=== PATIENT | male | born 1975 | race Caucasian/White ===

== ENCOUNTER 2022-08-24 13:57 | Inpatient (IN) ==
[2022-08-24 15:20] LABS: BUN/Creatinine Ratio 15 (6-26); Blood Urea Nitrogen 13 mg/dL (6-20); Carbon Dioxide 25 mEq/L (23-29); Chloride 98 mEq/L (98-107); Potassium 3.6 mEq/L (3.5-5.1); Sodium 134 mEq/L (136-145)
[2022-08-24 15:21] LABS: Calcium 9.7 mg/dL (8.6-10.3); Glucose 359 mg/dL (70-105); Osmolality,Calculated 293 (280-300); Troponin I < 0.03 ng/mL (< 0.04)
[2022-08-24] MEDS ORDERED: Aspirin 81 MG TAB.CHEW PO ONE (15:24)
[2022-08-24] MEDS ORDERED: Nitroglycerin 0.4 MG TAB.SUBL SL PRN (15:24)
[2022-08-24 15:26] LABS: Basophils # 0.1 K/mcL (0.0-0.2); Basophils % 0.8 %; Eosinophils # 0.1 K/mcL (0.0-0.6); Eosinophils % 0.7 %; Hematocrit 43.8 % (37.5-50.1); Hemoglobin 14.6 g/dL (12.9-16.9); Immature Granulocytes % 0.4 % (0-4); Lymphocytes # 2.1 K/mcL (0.6-4.6); Lymphocytes % 21.1 %; Mean Corpuscular HGB Conc 33.3 g/dL (31.6-35.5); Mean Corpuscular Hemoglobin 29.6 pg (28.0-33.3); Mean Corpuscular Volume 88.8 fL (83.0-100.0); Mean Platelet Volume 10.4 fL (9.4-12.4); Monocytes # 0.8 K/mcL (0.0-1.3); Monocytes % 8.1 %; Neutrophils # 6.9 K/mcL (1.6-8.9); Platelet Count 209 K/mcL (140-400); Red Blood Count 4.93 M/mcL (4.19-5.50); Red Cell Distribution Width 12.4 % (11.5-14.5); Segmented Neutrophils % 68.9 %; White Blood Count 10.1 K/mcL (4.3-11.1)
[2022-08-24] MEDS ORDERED: 0.9 % Sodium Chloride 1,000 ML IV ONE (15:27)
[2022-08-24 18:07] LABS: Albumin 4.2 g/dL (3.5-5.7); Albumin/Globulin Ratio 1.4 (1.1-2.2); Bilirubin,Direct 0.1 mg/dL (0.0-0.2); Bilirubin,Indirect 0.3 mg/dL (0.0-1.0); Bilirubin,Total 0.4 mg/dL (0.3-1.0); Total Protein 7.2 g/dL (6.4-8.9)
[2022-08-24] MEDS ORDERED: Ondansetron ODT 4 MG TAB.RAPDIS SL PRN (19:43)
[2022-08-24] MEDS ORDERED: Naloxone 0.4 MG/ML INJ IVP PRN (19:43)
[2022-08-24] MEDS ORDERED: *HR* Dextrose 50 % in Water (Syg) 50 ML SYRINGE IVP PRN (19:45)
[2022-08-24] MEDS ORDERED: D5% in Water 1,000 ML IVC PRN (19:45)
[2022-08-24] MEDS ORDERED: Dextrose Gel 15 GM/37.5 ML TUBE PO PRN ×2 (19:45)
[2022-08-24] MEDS ORDERED: *HR* Labetalol 20 MG/4 ML SYRINGE IVP ONE (19:57)
[2022-08-24] MEDS ORDERED: NIFEdipine Immed Rel 10 MG CAPSULE PO PRN (20:04)
[2022-08-24 20:25] LABS: Amphetamine Screen,Urine Negative ng/mL (Cutoff=1000); Barbiturate Screen,Urine Negative ng/mL (Cutoff=200); Benzodiazepines Screen,Urine Negative ng/mL (Cutoff=200); Cannabinoid Screen,Urine Negative ng/mL (Cutoff = 50); Cocaine Screen,Urine Negative ng/mL (Cutoff= 300); Opiate Screen,Urine Negative ng/mL (Cutoff=300); Phencyclidine Screen,Urine Negative ng/mL (Cutoff=25)
[2022-08-24] MEDS ORDERED: traZODone 50 MG TABLET PO SCH (21:00)
[2022-08-24] MEDS ORDERED: Insulin DETEMIR 100 UNIT/ML X5UNITS SUBQ SCH (21:00)
[2022-08-24] MEDS: Melatonin 3 MG TABLET PO PRN (22:49)
[2022-08-25] MEDS: Insulin LISPRO 300 UNITS/3 ML VIAL SUBQ SCH ×5 (00:34→21:51)
[2022-08-25] MEDS: Fluticasone Propionate Nasal 50 MCG/SPRAY BOTTLE NS SCH ×2 (00:35→08:18)
[2022-08-25] MEDS: *HR* Heparin 5,000 UNIT/ML VIAL SQ SCH ×2 (05:41→17:28)
[2022-08-25] MEDS ORDERED: Regadenoson 0.4 MG/5 ML SYRINGE IVP ONE (08:17)
[2022-08-25 08:18] LABS: Hematocrit 42.5 % (37.5-50.1); Hemoglobin 14.3 g/dL (12.9-16.9); Mean Corpuscular HGB Conc 33.6 g/dL (31.6-35.5); Mean Corpuscular Hemoglobin 30.2 pg (28.0-33.3); Mean Corpuscular Volume 89.9 fL (83.0-100.0); Mean Platelet Volume 10.3 fL (9.4-12.4); Platelet Count 211 K/mcL (140-400); Red Blood Count 4.73 M/mcL (4.19-5.50); Red Cell Distribution Width 12.5 % (11.5-14.5); White Blood Count 8.6 K/mcL (4.3-11.1)
[2022-08-25] MEDS: Aspirin 81 MG TAB.CHEW PO SCH (08:18)
[2022-08-25 08:33] LABS: BUN/Creatinine Ratio 17 (6-26); Blood Urea Nitrogen 11 mg/dL (6-20); Calcium 8.8 mg/dL (8.6-10.3); Carbon Dioxide 22 mEq/L (23-29); Chloride 104 mEq/L (98-107); Glucose 223 mg/dL (70-105); Magnesium 1.7 mg/dL (1.6-2.6); Osmolality,Calculated 288 (280-300); Phosphorous 3.4 mg/dL (2.7-4.5); Potassium 3.5 mEq/L (3.5-5.1); Sodium 136 mEq/L (136-145); Troponin I < 0.03 ng/mL (< 0.04)
[2022-08-25] MEDS: carvediloL 25 MG TABLET PO SCH ×2 (11:46→16:23)
[2022-08-25 17:36] LABS: Estimated Average Glucose 272 mg/dl; Hemoglobin A1C 11.1 %
[2022-08-25] MEDS: traZODone 50 MG TABLET PO SCH (21:50)
[2022-08-25] MEDS: Melatonin 3 MG TABLET PO PRN (21:50)
[2022-08-25] MEDS: Insulin DETEMIR 100 UNIT/ML X5UNITS SUBQ SCH (21:51)
[2022-08-26] MEDS: *HR* Heparin 5,000 UNIT/ML VIAL SQ SCH ×2 (05:52→17:09)
[2022-08-26] MEDS ORDERED: Regadenoson 0.4 MG/5 ML SYRINGE IVP ONE (06:55)
[2022-08-26] MEDS: Insulin LISPRO 300 UNITS/3 ML VIAL SUBQ SCH ×4 (08:24→20:12)
[2022-08-26] MEDS ORDERED: Metoprolol XL (24 HR) Succ 25 MG TAB.ER.24H PO SCH (09:00)
[2022-08-26] MEDS: carvediloL 25 MG TABLET PO SCH ×2 (11:23→17:07)
[2022-08-26] MEDS: Aspirin 81 MG TAB.CHEW PO SCH (11:23)
[2022-08-26] MEDS: Fluticasone Propionate Nasal 50 MCG/SPRAY BOTTLE NS SCH (11:24)
[2022-08-26 13:39] LABS: Basophils # 0.1 K/mcL (0.0-0.2); Eosinophils # 0.1 K/mcL (0.0-0.6); Eosinophils % 1.6 %; Hemoglobin 15.2 g/dL (12.9-16.9); Immature Granulocytes % 0.4 % (0-4); Lymphocytes # 2.7 K/mcL (0.6-4.6); Lymphocytes % 29.7 %; Mean Corpuscular HGB Conc 33.8 g/dL (31.6-35.5); Mean Corpuscular Volume 88.9 fL (83.0-100.0); Mean Platelet Volume 10.2 fL (9.4-12.4); Monocytes # 0.7 K/mcL (0.0-1.3); Monocytes % 7.6 %; Neutrophils # 5.3 K/mcL (1.6-8.9); Platelet Count 274 K/mcL (140-400); Red Blood Count 5.06 M/mcL (4.19-5.50); Red Cell Distribution Width 12.5 % (11.5-14.5); Segmented Neutrophils % 59.7 %; White Blood Count 8.9 K/mcL (4.3-11.1)
[2022-08-26 14:02] LABS: BUN/Creatinine Ratio 15 (6-26); Blood Urea Nitrogen 12 mg/dL (6-20); Carbon Dioxide 19 mEq/L (23-29); Chloride 102 mEq/L (98-107); Glucose 391 mg/dL (70-105); Osmolality,Calculated 288 (280-300); Potassium 3.9 mEq/L (3.5-5.1); Sodium 131 mEq/L (136-145)
[2022-08-26] MEDS: Insulin DETEMIR 100 UNIT/ML X5UNITS SUBQ SCH (20:13)
[2022-08-26] MEDS: traZODone 50 MG TABLET PO SCH (20:13)
[2022-08-27] MEDS: *HR* Heparin 5,000 UNIT/ML VIAL SQ SCH ×2 (06:04→16:31)
[2022-08-27] MEDS: Aspirin 81 MG TAB.CHEW PO SCH (09:36)
[2022-08-27] MEDS: Fluticasone Propionate Nasal 50 MCG/SPRAY BOTTLE NS SCH (09:36)
[2022-08-27] MEDS: carvediloL 25 MG TABLET PO SCH ×2 (09:38→16:31)
[2022-08-27] MEDS: Insulin LISPRO 300 UNITS/3 ML VIAL SUBQ SCH ×4 (09:39→21:40)
[2022-08-27] MEDS: traZODone 50 MG TABLET PO SCH (21:39)
[2022-08-27] MEDS: Insulin DETEMIR 100 UNIT/ML X5UNITS SUBQ SCH (21:41)
[2022-08-28] MEDS: *HR* Heparin 5,000 UNIT/ML VIAL SQ SCH ×2 (01:01→18:00)
[2022-08-28] MEDS: Insulin LISPRO 300 UNITS/3 ML VIAL SUBQ SCH ×4 (09:06→21:11)
[2022-08-28] MEDS: carvediloL 25 MG TABLET PO SCH ×2 (09:06→17:58)
[2022-08-28] MEDS: Aspirin 81 MG TAB.CHEW PO SCH (09:06)
[2022-08-28] MEDS: Fluticasone Propionate Nasal 50 MCG/SPRAY BOTTLE NS SCH (09:06)
[2022-08-28] MEDS ORDERED: *HR* FentaNYL (PF) 100 MCG/2 ML VIAL ONE (13:47)
[2022-08-28] MEDS ORDERED: *HR* Midazolam HCl 2 MG/2 ML VIAL ONE (13:47)
[2022-08-28] MEDS ORDERED: Iopamidol - 370 200 ML INFUS..BTL ONE (13:48)
[2022-08-28] MEDS ORDERED: *HR* Heparin 10,000 UNIT/10 ML VIAL ONE (13:48)
[2022-08-28] MEDS ORDERED: 0.9 % Sodium Chloride 1,000 ML ONE (13:48)
[2022-08-28] MEDS ORDERED: Nitroglycerin 1,000 MCG/5 ML VIAL IV ONE (13:48)
[2022-08-28] MEDS ORDERED: Heparin 1,000 UNITS/500 mL 500 ML ONE (13:48)
[2022-08-28 18:45] VITALS: PULSE 75
[2022-08-28 19:42] LABS: ABG Base Excess -2 mEq/L (-2 to 3); ABG HCO3 23 mEq/L (21-27); ABG Oxygen Saturation 96 % (95-98); ABG PCO2 39 mmHg (35-45); ABG PH 7.39 pH Units (7.32-7.45); ABG PO2 83 mmHg (85-104); ABG TCO2 24 mEq/L (20-26)
[2022-08-28 19:59] VITALS: BP 144/88; TEMP 98.1; O2SAT 96
[2022-08-28] MEDS: traZODone 50 MG TABLET PO SCH (21:10)
[2022-08-28] MEDS: Insulin DETEMIR 100 UNIT/ML X5UNITS SUBQ SCH (21:11)
[2022-08-28] MEDS ORDERED: Melatonin 3 MG TABLET PO ONE (21:15)
[2022-08-28] MEDS: Melatonin 3 MG TABLET PO PRN (21:17)
== END 2022-08-28 23:59 | disposition other institution (70) | DRG 191 ==
LOC: EMEROOARM 13:57 → 3BNU 13:57 → SUATTDRO 20:17 → 3BNU 20:18
PROVIDERS: ADMIT Internal Medicine; ATTEND Registered Nurse